=== PATIENT | female | born 1940 | race Caucasian/White ===

== ENCOUNTER 2020-08-31 17:15 | Inpatient (IN) ==
--- NOTE | 2020-08-31 18:53 | Emergency Department Note ---
Weakness HPI General Chief complaint: Weakness Stated complaint: weakness Time Seen by Provider: 08/31/20 18:04 Source: patient Mode of arrival: ambulatory Limitations: no limitations History of Present Illness HPI Narrative: Narrative: This pleasant 80-year-old comes in to the emergency room with a 10-day history o f feeling weak and poor appetite such that she has not eaten and drank very normally. She has had nausea but no vomiting or diarrhea or constipation. Her last bowel movement was 2 to 3 days ago but was normal. She has some urinary frequency. She reports a past history of having wrist fractures, surgery for them and then ended up going to rehab for 3 weeks and then came here to have family members I believe a daughter help with her. She was improving significantly until these last 10 days where she was getting worse as far as weaker. She denies fevers chills or sweats or other signs of infectious process or problems. Related Data Home Medications Medication Instructions Recorded Confirmed alendronate 35 mg PO WEEKLY 08/31/20 08/31/20 amlodipine 10 mg PO DAILY 08/31/20 08/31/20 apixaban [Eliquis] 2.5 mg PO BID 08/31/20 08/31/20 calcitriol See Rx Instructions .ROUTE .COMPLEX 08/31/20 08/31/20 carvedilol See Rx Instructions .ROUTE .COMPLEX 08/31/20 08/31/20 cholecalciferol (vitamin D3) See Rx Instructions .ROUTE .COMPLEX 08/31/20 08/31/20 glyburide 5 mg PO BID 08/31/20 08/31/20 levothyroxine 25 mcg PO QDAY 08/31/20 08/31/20 lisinopril 10 mg PO BID 08/31/20 08/31/20 magnesium hydroxide 30 ml PO PRN PRN 08/31/20 08/31/20 melatonin 10 mg PO HS PRN 08/31/20 08/31/20 sodium bicarbonate See Rx Instructions .ROUTE .COMPLEX 08/31/20 08/31/20 calcitriol 0.5 mcg PO 3XW 09/01/20 09/01/20 Allergies Allergy/AdvReac Type Severity Reaction Status Date / Time Penicillins Allergy Mild Hives Verified 08/31/20 17:20 Sulfa (Sulfonamide Allergy Mild Hives Verified 08/31/20 17:20 Antibiotics) Review of Systems ROS ROS Narrative: Narrative: No blurry vision or double vision No sore throat. Some recent but chronic runny nose No chest pain or palpitations No cough or shortness of breath No abdominal pain hematochezia or melena No dysuria but does have frequency and urgency in small amounts. [facility] Narrative Patient History Narrative: Narrative: Denies history of thyroid disease, parathyroid disease, kidney disease but had seen a lpn private duty in the past with an appointment next week. Has seen Dr. Bianchi at [facility]. Medical/Surgical/Family History All Active Problems (Updated 09/01/20 @ 03:34 by Dony Chou DO) Hypercalcemia (Acute) Acute on chronic renal failure (Acute) Weakness generalized (Acute) Decreased appetite (Acute) Chronic renal failure (Acute) History of cardiac pacemaker (Acute) Medical History (Updated 09/01/20 @ 03:49 by Dony Chou DO) Chronic renal failure (Acute) Surgical History (Updated 09/01/20 @ 03:34 by Dony Chou DO) History of cardiac pacemaker (Acute) History of pancreatic surgery (Acute) Removal of cyst Family History (Updated 09/01/20 @ 03:35 by Dony Chou DO) Acute myocardial infarction Father Social History Smoking Status: Never smoker Alcohol Intake Frequency: does not drink Substance Use: does not use Exam Narrative Narrative: Narrative: General Limitations: no limitations General appearance: Present alert, in no apparent distress, malaise (moderate) and nontoxic Head Head: Present atraumatic and normocephalic Eye Eye: Present normal appearance, PERRL and EOMI ENT ENT: Present normal oropharynx and mucous membranes dry Neck Neck: Present trachea midline; Absent lymphadenopathy and thyromegaly Chest Chest: Present symmetric chest wall rise Respiratory Respiratory: Present normal lung sounds bilaterally; Absent respiratory distress, rales/crackles, wheezes, stridor, accessory muscle use and prolonged expiratory phase Cardiovascular Cardiovascular: Present regular rate and normal rhythm; Absent systolic murmur and diastolic murmur Adbominal Abdominal: Present soft; Absent distention, tenderness, guarding, rebound, rigidity, organomegaly and mass Extremities Extremities: Absent pedal edema, pretibial edema, calf tenderness and cyanosis Back Back: Absent CVA tenderness (R), CVA tenderness (L) and spinous process tenderness Neurological Neurological: Present alert and oriented X3 Psychiatric Psychiatric: Present normal affect, polite and pleasant; Absent depressed, ag itated, anxious and poor eye contact Skin Skin: Present warm (WNL) and dry; Absent cyanosis and pallor Course Vital Signs Vital signs: Vital Signs Temperature 98.3 F 08/31/20 17:16 Pulse Rate 73 08/31/20 17:16 Respiratory Rate 18 08/31/20 17:16 Blood Pressure 134/78 08/31/20 17:16 Pulse Oximetry (%) 98 08/31/20 17:16 Temperature 98.3 F 08/31/20 17:16 Pulse Rate 70 09/01/20 02:39 Respiratory Rate 21 09/01/20 02:39 Blood Pressure 161/88 09/01/20 00:31 Pulse Oximetry (%) 96 09/01/20 02:39 MDM MDM Narrative Medical decision making narrative: Narrative: 7:31 PM - interviewed and examined. We will do metabolic and infectious work-up because of persisting symptoms and issues and concerns. EKG demonstrates paced rhythm with wide QRS but rather evenly spaced. 6:53 PM - lactic acid 2.5. White count 6.0. Hemoglobin and hematocrit 12.0/34.8. Sodium 137 potassium 2.8 and chloride 94. BUN and creatinine 33 and 2.3 No old ones for comparison. Glucose 208 Calcium very elevated at 15.2. Troponin normal at 0.02. Proteins are unremarkable. 9:45 PM - call out to hospitalist to discuss her care and admission with such a high calcium which is potentially toxic and life-threatening with cardiac dysrhythmias, etc. Knowledge of her previous creatinine is not in our system but may be at [place]. With very elevated calcium, normal saline started. Lasix 20 IV ordered. Oral potassium ordered. 10:08 PM - I held the Lasix pending getting some additional potassium. Potassium rider ordered. I spoke with the hospitalist,Dr. Lainez, about this patient. * He suggests going ahead additional IV fluids. * A PTH is already been collected. * Accurate I's and O's needed. * He also recommends getting calcitonin as well as * doing the 25 hydroxyvitamin D and 1-25 hydroxy vitamin D levels. * He agrees with holding the furosemide due to the low potassium. * Pamidronate also previously ordered and was found. * He suggests going ahead with 200 cc/h, accurate I's and O's, morning labs. * He would rather not for a Benson catheter. In discussing CODE STATUS with patient she is generally wishing DNR, DNI. Lab Data Result diagrams: 08/31/20 18:05 08/31/20 18:05 Labs: Lab Results 08/31/20 08/31/20 08/31/20 Range/Units 18:05 18:05 19:39 WBC 6.0 (4.5-11.0) K/mcL RBC 3.96 L (4.00-5.20) M/mcL Hgb 12.0 (12.0-15.0) g/dL Hct 34.8 L (36.0-48.0) % MCV 87.9 (80.0-100.0) fL MCH 30.3 (26.0-34.0) pg MCHC 34.5 (31.0-36.0) g/dL RDW 11.7 (11.5-14.5) % Plt Count 250 (140-440) K/mcL MPV 10.6 H (7.4-10.4) fL Seg Neutrophils % 78 (38-78) % Lymphocytes % 14 L (15-49) % Monocytes % (Manual) 8 (1-12) % Platelet Estimate Normal (Normal) RBC Morphology Normal (Normal) Sodium 137 (133-145) mmol/L Potassium 2.8 L* (3.3-5.1) mmol/L Chloride 94 L (96-108) mmol/L Carbon Dioxide 29 (22-30) mmol/L Anion Gap 14.0 (8.0-16.0) BUN 33 H (8-23) mg/dL Creatinine 2.3 H (0.6-1.1) mg/dL GFR Calculation 19 Glucose 208 H (70-105) mg/dL Calcium 15.2 H* (8.6-10.4) mg/dL Total Bilirubin 1.0 (0.1-1.0) mg/dL AST 17 (<32) U/L ALT 11 (<40) U/L Alkaline Phosphatase 73 (39-117) U/L Troponin T 0.02 (<0.03) ng/mL Total Protein 7.0 (5.9-8.4) gm/dL Albumin 4.2 (3.2-5.2) gm/dL Globulin 2.8 (2.2-3.7) gm/dL Albumin/Globulin Ratio 1.5 (1.0-2.3) Discharge Plan Patient/Caregiver Discharge Instructions Pt seen by REVENUE COORDINATOR/PA only: No Clinical Impression: Hypercalcemia, Weakness generalized, Decreased appetite Acute on chronic renal failure Qualifiers: Acute renal failure type: unspecified Chronic kidney disease stage: unspecified stage Qualified Code(s): N17.9 - Acute kidney failure, unspecified Patient Disposition: Xfer As Inpt ([facility] Discharge Date/Time: 09/01/20 02:43
[2020-08-31 19:00] LABS: Hematocrit 34.8 % (36.0-48.0); Mean Cell Volume 87.9 fL (80.0-100.0); Mean Corpuscular HGB Conc 34.5 g/dL (31.0-36.0); Mean Platelet Volume 10.6 fL (7.4-10.4); Platelet Count 250 K/mcL (140-440); RBC 3.96 M/mcL (4.00-5.20); Red Cell Distribution Width 11.7 % (11.5-14.5)
[2020-08-31 19:47] LABS: ALT/SGPT 11 U/L (<40); AST/SGOT 17 U/L (<32); Albumin 4.2 gm/dL (3.2-5.2); Albumin/Globulin Ratio 1.5 (1.0-2.3); Alkaline Phosphatase 73 U/L (39-117); Blood Urea Nitrogen 33 mg/dL (8-23); Calcium 15.2 mg/dL (8.6-10.4); Carbon Dioxide 29 mmol/L (22-30); Chloride 94 mmol/L (96-108); Globulin 2.8 gm/dL (2.2-3.7); Glomerular Filtration Rate 19; Glucose 208 mg/dL (70-105)
[2020-08-31 19:58] LABS: Lymphocytes % 14 % (15-49); Monocytes % (Manual) 8 % (1-12); Platelet Estimate NORMAL (Normal); RBC Morphology NORMAL (Normal); Segmented Neutrophils % 78 % (38-78)
[2020-08-31] MEDS ORDERED: 0.9 % SODIUM CHLORIDE 1,000 ML IV ONE (21:39)
[2020-08-31] MEDS ORDERED: POTASSIUM CHLORIDE 20 MEQ TABLET PO ONE (21:40)
[2020-08-31] MEDS ORDERED: FUROSEMIDE 20 MG/2 ML VIAL IV ONE (21:40)
[2020-08-31] MEDS ORDERED: POTASSIUM CHLORIDE 80 MEQ in DEXTROSE 5% IN WATER 1,000 ML IV ONE (22:06)
[2020-08-31] MEDS ORDERED: POTASSIUM CHLORIDE 20 MEQ/10 ML VIAL IV ONE (22:28)
[2020-08-31] MEDS ORDERED: PAMIDRONATE 60 MG in 0.9 % SODIUM CHLORIDE 500 ML IV ONE (23:14)
[2020-09-01] MEDS ORDERED: 0.9 % SODIUM CHLORIDE 1,000 ML IV ONE (00:45)
[2020-09-01] MEDS ORDERED: ONDANSETRON 4 MG/2 ML VIAL IV PRN (02:11)
[2020-09-01] MEDS: 0.9 % SODIUM CHLORIDE 1,000 ML IV SCH ×6 (04:48→19:40)
[2020-09-01 05:18] LABS: Appearance,Urine CLEAR (Clear); Bilirubin,Urine Negative (Negative); Color,Urine STRAW; Culture Indicated,Urine No; Glucose,Urine (UA) 150 mg/dL (Negative); Ketones,Urine Negative (Negative); Leukocyte Esterase,Urine Negative /ug (Negative); Mucus,Urine FEW /hpf; Nitrate,Urine Negative (Negative); Protein,Urine Negative (Negative); Specific Gravity,Urine 1.008 (1.000-1.035); Urine Blood Negative (Negative); Urine RBC 2 /hpf (0-3); Urine Squamous Epithelial Cell < 1 /hpf (0-4); Urine WBC 3 /hpf (0-4); Urobilinogen,Urine Negative
[2020-09-01 06:26] LABS: Basophils # (Auto) 0.02 K/mcL (0.00-0.20); Basophils % (Auto) 0.3 % (0.0-2.0); Eosinophils # (Auto) 0.03 K/mcL (0.00-0.70); Eosinophils % (Auto) 0.4 % (0.0-7.0); Hematocrit 30.7 % (36.0-48.0); Hemoglobin 10.5 g/dL (12.0-15.0); Lymphocytes # (Auto) 1.36 K/mcL (1.50-4.80); Lymphocytes % (Auto) 18.1 % (15.0-49.0); Mean Corpuscular HGB Conc 34.2 g/dL (31.0-36.0); Mean Platelet Volume 10.5 fL (7.4-10.4); Monocytes # (Auto) 0.71 K/mcL (0.10-0.90); Monocytes % (Auto) 9.4 % (1.0-12.0); Neutrophils % (Auto) 71.8 % (38.0-78.0); Platelet Count 213 K/mcL (140-440); RBC 3.45 M/mcL (4.00-5.20); Red Cell Distribution Width 11.7 % (11.5-14.5); WBC 7.5 K/mcL (4.5-11.0)
[2020-09-01 06:59] LABS: ALT/SGPT 9 U/L (<40); AST/SGOT 15 U/L (<32); Albumin 3.8 gm/dL (3.2-5.2); Albumin/Globulin Ratio 1.8 (1.0-2.3); Alkaline Phosphatase 60 U/L (39-117); Bilirubin,Direct 0.2 mg/dL (<0.3); Bilirubin,Total 0.8 mg/dL (0.1-1.0); Blood Urea Nitrogen 26 mg/dL (8-23); Calcium 12.9 mg/dL (8.6-10.4); Carbon Dioxide 23 mmol/L (22-30); Chloride 103 mmol/L (96-108); Globulin 2.1 gm/dL (2.2-3.7); Glomerular Filtration Rate 24; Glucose 188 mg/dL (70-105); Lactate Dehydrogenase 155 U/L (135-225); Phosphorous 1.5 mg/dL (2.5-4.5); Triglycerides 304 mg/dL (<150)
[2020-09-01] MEDS: 0.9 % SODIUM CHLORIDE 10 ML SYRINGE IV SCH ×3 (07:34→20:07)
[2020-09-01] MEDS ORDERED: DEXTROSE 31 GM ORAL.SUSP PO PRN (15:44)
[2020-09-01] MEDS ORDERED: DEXTROSE 50% 50 ML VIAL IV PRN (15:44)
[2020-09-01] MEDS ORDERED: CARVEDILOL 6.25 MG TABLET PO SCH (15:45)
[2020-09-01 15:50] LABS: Parathyroid Hormone Intact-SO 40.8 pg/mL (15.0-65.0)
--- NOTE | 2020-09-01 15:53 | Internal Med History&Physical ---
HPI History of Present Illness Patient information: Note initiated : 09/01/20 at 3:48 pm Service Date, if different from initiated Date: [] Patient: Gloria Sanchez 80 y/o F admitted on 09/01/20 for weakness. Chief Complaint: [hypercalcemia] History of present illness: Ms. Sanchez is a 80 year old female with a history of hypertension, DM II, afib (on low dose eliquis), CKD unknown stage (follows with nephrology at [facility] in [place]), s/p pacemaker placement years ago, who presented to the ED for lethargy, generalized weakness and found to have hypercalcemia with a calcium of 15.2 and an acute kidney injury. The the patient was started on IV fluid, given a dose of Pamidronate, admitted for further management. Overnight her calcium level improved to 12.9 and renal function improved as well. Since calcium has improved rapidly calcitonin was deferred. 25-OH vitamin D level elevated at 82.9. Constitutional Constitutional: Present anorexia, chills, fatigue, frequent falls, lethargy, malaise and weakness; Absent fever(s) and night sweats Cardiovascular Cardiovascular: Absent chest pain Respiratory Respiratory: Absent cough and dyspnea Gastrointestinal Gastrointestinal: Absent abdominal pain, constipation, nausea and vomiting Genitourinary Genitourinary: Present urinary frequency Musculoskeletal Musculoskeletal: Absent arthralgias, joint swelling and muscle cramps Integumentary Integumentary: Absent new lesions Neurological Neurological: Absent focal weakness, headache(s), loss of vision and sensory deficit Psychiatric Psychiatric: Present memory loss; Absent anxiety Hematologic/Lymphatic Hematologic/Lymphatic: Absent lymphadenopathy PFSH PFSH All Active Problems (Updated 09/01/20 @ 03:34 by Dony Chou DO) Hypercalcemia (Acute) Acute on chronic renal failure (Acute) Weakness generalized (Acute) Decreased appetite (Acute) Chronic renal failure (Acute) History of cardiac pacemaker (Acute) Medical History (Updated 09/01/20 @ 03:49 by Dony Chou DO) Chronic renal failure (Acute) Surgical History (Updated 09/01/20 @ 03:34 by Dony Chou DO) History of cardiac pacemaker (Acute) History of pancreatic surgery (Acute) Removal of cyst Family History (Updated 09/01/20 @ 03:35 by Dony Burrup, DO) Father Acute myocardial infarction Social History smoking status: Never smoker alcohol intake frequency: does not drink substance use type: does not use MEDS/ALLERGIES Home Medications and Allergies Home Medications Medication Instructions Recorded Confirmed Type alendronate 35 mg PO WEEKLY 08/31/20 08/31/20 History amlodipine 10 mg PO DAILY 08/31/20 08/31/20 History apixaban [Eliquis] 2.5 mg PO BID 08/31/20 08/31/20 History calcitriol See Rx Instructions .ROUTE .COMPLEX 08/31/20 08/31/20 History carvedilol See Rx Instructions .ROUTE .COMPLEX 08/31/20 08/31/20 History cholecalciferol (vitamin D3) See Rx Instructions .ROUTE .COMPLEX 08/31/20 08/31/20 History glyburide 5 mg PO BID 08/31/20 08/31/20 History levothyroxine 25 mcg PO QDAY 08/31/20 08/31/20 History lisinopril 10 mg PO BID 08/31/20 08/31/20 History magnesium hydroxide 30 ml PO PRN PRN 08/31/20 08/31/20 History melatonin 10 mg PO HS PRN 08/31/20 08/31/20 History sodium bicarbonate See Rx Instructions .ROUTE .COMPLEX 08/31/20 08/31/20 History calcitriol 0.5 mcg PO 3XW 09/01/20 09/01/20 History Allergies Allergy/AdvReac Type Severity Reaction Status Date / Time Penicillins Allergy Mild Hives Verified 08/31/20 17:20 Sulfa (Sulfonamide Allergy Mild Hives Verified 08/31/20 17:20 Antibiotics) EXAM Constitutional Vitals: Temp Pulse Resp BP Pulse Ox 97.7 F 69 13 140/77 96 09/01/20 14:00 09/01/20 10:01 09/01/20 14:00 09/01/20 14:00 09/01/20 14:00 Head Head exam: Present atraumatic and normal inspection Eye Eye exam: Present normal appearance; Absent scleral icterus Neck Neck exam: Present full ROM Respiratory Respiratory exam: Present normal respiratory exam Cardiovascular Cardiovascular exam: Present normal rate and rhythm Additional comments: has pacemaker GI/Abdominal GI/Abdominal exam: Present soft; Absent tenderness Extremities Exam Extremities exam: Present full ROM and tenderness; Absent joint swelling Additional comments: Bruise to right ramesh from recent fall. Neurological Exam Neurological exam: Present alert and CN II-XII intact Psychiatric Psychiatric exam: Present normal affect and normal mood Skin Skin exam: Present warm DATA Data Completed and Pending Labs: Labs from last 24 hours 09/01/20 09/01/20 09/01/20 18:05 18:05 18:00 WBC RBC Hgb Hct MCV MCH MCHC RDW Plt Count MPV Neut % (Auto) Lymph % (Auto) [place] % (Auto) Eos % (Auto) Baso % (Auto) Lymph # (Auto) [place] # (Auto) Eos # (Auto) Baso # (Auto) Seg Neutrophils % Lymphocytes % Monocytes % (Manual) Absolute Neutrophils Platelet Estimate RBC Morphology Sodium Potassium Chloride Carbon Dioxide Anion Gap BUN Creatinine GFR Calculation Glucose Uric Acid Calcium Phosphorus Magnesium Total Bilirubin Direct Bilirubin GGT AST ALT Alkaline Phosphatase Lactate Dehydrogenase Troponin T Total Protein Albumin Globulin Albumin/Globulin Ratio Triglycerides 25-OH Vitamin D Total 82.89 Vit D 1,25-Dihydroxy Pending 1,25 Dihydroxy Vit D2 Pending 1,25 Dihydroxy Vit D3 Pending PTH Intact Pending Urine Color Urine Appearance Urine pH Ur Specific [place] Urine Protein Urine Glucose (UA) Urine Ketones Urine Occult Blood Urine Nitrate Urine Bilirubin Urine Urobilinogen Ur Leukocyte Esterase Urine RBC Urine WBC Ur Squamous Epith Cells Urine Bacteria Urine Mucus Ur Culture Indicated? 09/01/20 09/01/20 09/01/20 05:00 05:00 04:29 WBC 7.5 RBC 3.45 L Hgb 10.5 L Hct 30.7 L MCV 89.0 MCH 30.4 MCHC 34.2 RDW 11.7 Plt Count 213 MPV 10.5 H Neut % (Auto) 71.8 Lymph % (Auto) 18.1 [place] % (Auto) 9.4 Eos % (Auto) 0.4 Baso % (Auto) 0.3 Lymph # (Auto) 1.36 L [place] # (Auto) 0.71 Eos # (Auto) 0.03 Baso # (Auto) 0.02 Seg Neutrophils % Lymphocytes % Monocytes % (Manual) Absolute Neutrophils 5.40 Platelet Estimate RBC Morphology Sodium 139 Potassium 3.7 Chloride 103 Carbon Dioxide 23 Anion Gap 13.0 BUN 26 H Creatinine 1.9 H GFR Calculation 24 Glucose 188 H Uric Acid 10.0 H Calcium 12.9 H Phosphorus 1.5 L Magnesium 1.9 Total Bilirubin 0.8 Direct Bilirubin 0.2 GGT 29 AST 15 ALT 9 Alkaline Phosphatase 60 Lactate Dehydrogenase 155 Troponin T Total Protein 5.9 Albumin 3.8 Globulin 2.1 L Albumin/Globulin Ratio 1.8 Triglycerides 304 H 25-OH Vitamin D Total Vit D 1,25-Dihydroxy 1,25 Dihydroxy Vit D2 1,25 Dihydroxy Vit D3 PTH Intact Urine Color Straw Urine Appearance Clear Urine pH 8.0 Ur Specific [place] 1.008 Urine Protein Negative Urine Glucose (UA) 150 A Urine Ketones Negative Urine Occult Blood Negative Urine Nitrate Negative Urine Bilirubin Negative Urine Urobilinogen Negative Ur Leukocyte Esterase Negative Urine RBC 2 Urine WBC 3 Ur Squamous Epith Cells < 1 Urine Bacteria None Urine Mucus Few A Ur Culture Indicated? No 08/31/20 08/31/20 08/31/20 19:39 18:05 18:05 WBC 6.0 RBC 3.96 L Hgb 12.0 Hct 34.8 L MCV 87.9 MCH 30.3 MCHC 34.5 RDW 11.7 Plt Count 250 MPV 10.6 H Neut % (Auto) Lymph % (Auto) [place] % (Auto) Eos % (Auto) Baso % (Auto) Lymph # (Auto) [place] # (Auto) Eos # (Auto) Baso # (Auto) Seg Neutrophils % 78 Lymphocytes % 14 L Monocytes % (Manual) 8 Absolute Neutrophils Platelet Estimate Normal RBC Morphology Normal Sodium 137 Potassium 2.8 L* Chloride 94 L Carbon Dioxide 29 Anion Gap 14.0 BUN 33 H Creatinine 2.3 H GFR Calculation 19 Glucose 208 H Uric Acid Calcium 15.2 H* Phosphorus Magnesium Total Bilirubin 1.0 Direct Bilirubin GGT AST 17 ALT 11 Alkaline Phosphatase 73 Lactate Dehydrogenase Troponin T 0.02 Total Protein 7.0 Albumin 4.2 Globulin 2.8 Albumin/Globulin Ratio 1.5 Triglycerides 25-OH Vitamin D Total Vit D 1,25-Dihydroxy 1,25 Dihydroxy Vit D2 1,25 Dihydroxy Vit D3 PTH Intact Urine Color Urine Appearance Urine pH Ur Specific [place] Urine Protein Urine Glucose (UA) Urine Ketones Urine Occult Blood Urine Nitrate Urine Bilirubin Urine Urobilinogen Ur Leukocyte Esterase Urine RBC Urine WBC Ur Squamous Epith Cells Urine Bacteria Urine Mucus Ur Culture Indicated? A/P Narrative A/P Narrative: ASSESSMENT: 80 year old female with a history of hypertension, DM II, afib (on low dose eliquis), CKD unknown stage (follows with nephrology at [facility] in [place]), s/p pacemaker placement years ago, multiple recent hospitalization and SNF rehab stays for recent falls presented to the ED for several weeks of lethargy, anorexia, generalized weakness and found to have hypercalcemia and an acute kidney injury. #Hypercalcemia-uncertain etiology, improving with IV and s/p pamidronate x1 #Acute on chronic kidney injury-likely d/t hypercalcemia, improving #Lethargy and anorexia secondary to hypercalcemia-improving #Elevated 25-OH vitamin D level-possible explanation for hypercalcemia #Atrial fibrillation s/p pacemaker-probably pacemaker dependent #Hypertension #Osteoporosis #Generalized weakness PLAN -IV fluid, monitor renal function, calcium level, and urine output. -Avoid nephrotoxic meds, holding lisinopril for GIBSON -Parathyroid hormone level -Pending 1,25-OH vitamin D level -TSH level -If PTH level low then PTH-rp, SPEP, UPEP, free light chain assay -Holding home calcitriol and cholecalciferol for hypercalcemia and elevated vit D level -Resume home norvasc and coreg -Resume home eliquis -Resume home levothyroxine -Lantus and SSI, holding glyburide -Telemetry for now -PT&OT consult -DVT prophylaxis: on eliquis Time Spent With Patient Time: Total time spent is greater than 50% in coordination of care (as documented) at patient's floor/unit and/or counseling patient: QUALITY VTE Deep Vein Thrombosis/Pulmonary Embolism Present on Admission: No
[2020-09-01] MEDS ORDERED: MELATONIN 3 MG TABLET PO PRN (15:55)
[2020-09-01] MEDS: INSULIN LISPRO 1 UNIT/0.01 ML UNIT SQ SCH ×2 (17:07→20:06)
[2020-09-01] MEDS: CARVEDILOL 6.25 MG TABLET PO SCH (17:07)
[2020-09-01] MEDS: APIXABAN 5 MG TABLET PO SCH (20:06)
[2020-09-02] MEDS: 0.9 % SODIUM CHLORIDE 10 ML SYRINGE IV SCH ×3 (05:13→20:03)
[2020-09-02] MEDS: 0.9 % SODIUM CHLORIDE 1,000 ML IV SCH ×4 (05:24→19:58)
[2020-09-02 06:10] LABS: Basophils # (Auto) 0.02 K/mcL (0.00-0.20); Basophils % (Auto) 0.3 % (0.0-2.0); Eosinophils # (Auto) 0.12 K/mcL (0.00-0.70); Eosinophils % (Auto) 1.6 % (0.0-7.0); Hematocrit 30.7 % (36.0-48.0); Hemoglobin 10.4 g/dL (12.0-15.0); Lymphocytes # (Auto) 1.28 K/mcL (1.50-4.80); Lymphocytes % (Auto) 17.3 % (15.0-49.0); Mean Cell Volume 89.8 fL (80.0-100.0); Mean Corpuscular HGB Conc 33.9 g/dL (31.0-36.0); Mean Platelet Volume 10.5 fL (7.4-10.4); Monocytes # (Auto) 0.56 K/mcL (0.10-0.90); Monocytes % (Auto) 7.6 % (1.0-12.0); Neutrophils % (Auto) 73.2 % (38.0-78.0); Platelet Count 207 K/mcL (140-440); RBC 3.42 M/mcL (4.00-5.20); WBC 7.4 K/mcL (4.5-11.0)
[2020-09-02 07:17] LABS: ALT/SGPT 10 U/L (<40); AST/SGOT 15 U/L (<32); Albumin 3.6 gm/dL (3.2-5.2); Albumin/Globulin Ratio 1.6 (1.0-2.3); Alkaline Phosphatase 62 U/L (39-117); Bilirubin,Direct < 0.2 mg/dL (<0.3); Bilirubin,Total 0.6 mg/dL (0.1-1.0); Blood Urea Nitrogen 22 mg/dL (8-23); Calcium 10.9 mg/dL (8.6-10.4); Carbon Dioxide 23 mmol/L (22-30); Chloride 108 mmol/L (96-108); Globulin 2.3 gm/dL (2.2-3.7); Glomerular Filtration Rate 28; Glucose 116 mg/dL (70-105); Lactate Dehydrogenase 149 U/L (135-225); Phosphorous 1.5 mg/dL (2.5-4.5); Triglycerides 387 mg/dL (<150); Uric Acid 9.3 mg/dL (2.5-8.0)
[2020-09-02] MEDS ORDERED: LEVOTHYROXINE 25 MCG TABLET PO SCH (07:30)
[2020-09-02] MEDS ORDERED: POTASSIUM CHLORIDE 20 MEQ TABLET PO ONE (07:58)
[2020-09-02] MEDS ORDERED: MAGNESIUM SULFATE 2 GM/50 ML BAG IV ONE (07:58)
[2020-09-02] MEDS: INSULIN LISPRO 1 UNIT/0.01 ML UNIT SQ SCH ×4 (08:08→20:03)
[2020-09-02] MEDS: APIXABAN 5 MG TABLET PO SCH ×2 (08:38→21:12)
[2020-09-02] MEDS: CARVEDILOL 6.25 MG TABLET PO SCH ×2 (08:39→18:17)
[2020-09-02] MEDS ORDERED: amLODIPine 10 MG TABLET PO SCH (09:00)
[2020-09-02] MEDS ORDERED: INSULIN GLARGINE, HUMAN 1 UNIT/0.01 ML SQ SCH (09:00)
[2020-09-02] MEDS ORDERED: FLU VACC QS2020-21(6MOS UP)/PF 60 MCG/0.5 ML SYRINGE IM ONE (10:00)
[2020-09-02] MEDS ORDERED: MELATONIN 3 MG TABLET PO PRN (10:59)
[2020-09-02] MEDS ORDERED: ONDANSETRON 4 MG/2 ML VIAL IV PRN (10:59)
[2020-09-02] MEDS ORDERED: DEXTROSE 31 GM ORAL.SUSP PO PRN (10:59)
[2020-09-02] MEDS ORDERED: DEXTROSE 50% 50 ML VIAL IV PRN (10:59)
--- NOTE | 2020-09-02 11:01 | Internal Med Progress Note ---
SUBJECTIVE Subjective Patient information: Note initiated : 09/02/20 at 10:57 am Service Date, if different from initiated Date: [] Patient: Gloria Sanchez 80 y/o F admitted on 09/01/20 for weakness. Chief Complaint: [fatigue and anorexia] Pertinent ROS: Ms. Sanchez is a 80 year old female with a history of hypertension, DM II, afib (on low dose eliquis), CKD unknown stage (follows with nephrology at [facility] in [place]), s/p pacemaker placement years ago, who presented to the ED for lethargy, generalized weakness and found to have hyp ercalcemia with a calcium of 15.2 and an acute kidney injury. The the patient was started on IV fluid, given a dose of Pamidronate, admitted for further management. Overnight her calcium level improved to 12.9 and renal function improved as well. Since calcium has improved rapidly calcitonin was deferred. 25-OH vitamin D level elevated at 82.9. 09/02 Improving renal function and calcium level, decreased IV fluid rate to 75 mL/hr. PTH 40.8 (higher than expected for calcium level). TSH 1.36. Transfer to med/surg. PT/OT evaluations. Constitutional Vitals: Vital Signs Temp Pulse Resp BP Pulse Ox 98.5 F 70 16 121/76 95 09/02/20 08:01 09/01/20 14:00 09/02/20 10:01 09/02/20 10:01 09/02/20 10:07 Period Temp Pulse Resp BP Sys/Jerome Pulse Ox Last 24 Hr 97.7 F-98.5 F 70 13-18 115-155/61-91 91-97 Intake and Output 09/01/20 09/02/20 09/02/20 21:59 05:59 13:59 Intake Total 1700 1100 240 Output Total 520 1750 525 Balance 1180 -650 -285 Weight 73.618 kg Intake & Output: Intake & Output 09/01/20 09/02/20 09/02/20 21:59 05:59 13:59 Intake Total 1700 1100 240 Output Total 520 1750 525 Balance 1180 -650 -285 Weight 73.618 kg Intake: IV 1300 1000 Sodium Chloride 0.9% 1,000 ml @ 1300 1000 75 mls/hr IV .[id number] [facility] Rx#: [id number] Oral 400 100 240 Output: Void Amount 520 1750 525 Other: Meal Dinner Breakfast Percent of Meal Consumed 100% 75% Feeding Ability Independent Urine Appearance Clear Clear Clear Urine Color Dark Yellow Pale Bright Yellow Urine Odor Normal Normal Normal Stool Size Large Large Stool Color Brown Brown Stool Consistency Formed Formed # Bowel Movements 1 Additional findings Additional findings: Head: Atraumatic, normal inspection. Eyes: normal appearance, no scleral icterus. Neck: full ROM Respiratory: no respiratory distress. Cardiovascular: normal rate and rythm, S1, S2. GI/Abdominal: soft, nontender, no guarding. Extremities: full range of motion, nontender. Neurological: CN II-XII intact, intact motor, intact sensation. Psychiatric: normal mood. Skin: warm, normal color OBJ DATA Labs CBC & Chem 7: 09/02/20 04:57 09/02/20 04:57 Labs: Abnormal Lab Results 09/02/20 09/02/20 09/01/20 04:57 04:57 05:00 RBC 3.42 L Hgb 10.4 L Hct 30.7 L MPV 10.5 H Lymph # (Auto) 1.28 L Lymphocytes % Potassium Chloride BUN 26 H Creatinine 1.7 H 1.9 H Glucose 116 H 188 H Uric Acid 9.3 H 10.0 H Calcium 10.9 H 12.9 H Phosphorus 1.5 L 1.5 L Magnesium 1.5 L Globulin 2.1 L Triglycerides 387 H 304 H Urine Glucose (UA) Urine Mucus 09/01/20 09/01/20 08/31/20 05:00 04:29 18:05 RBC 3.45 L Hgb 10.5 L Hct 30.7 L MPV 10.5 H Lymph # (Auto) 1.36 L Lymphocytes % Potassium 2.8 L* Chloride 94 L BUN 33 H Creatinine 2.3 H Glucose 208 H Uric Acid Calcium 15.2 H* Phosphorus Magnesium Globulin Triglycerides Urine Glucose (UA) 150 A Urine Mucus Few A 08/31/20 18:05 RBC 3.96 L Hgb Hct 34.8 L MPV 10.6 H Lymph # (Auto) Lymphocytes % 14 L Potassium Chloride BUN Creatinine Glucose Uric Acid Calcium Phosphorus Magnesium Globulin Triglycerides Urine Glucose (UA) Urine Mucus Meds: Medications Amlodipine Besylate (Norvasc) 10 mg PO DAILY [facility] Last Admin: 09/02/20 08:39 Dose: 10 mg Documented by: Apixaban (Eliquis) 2.5 mg PO BID [facility] Last Admin: 09/02/20 08:38 Dose: 2.5 mg Documented by: [facility] ([facility]) [facility] Last Admin: 09/02/20 08:39 Dose: 6.25 mg Documented by: Dextrose (Dextrose 50%) 0 ml IV UD PRN PRN Reason: Hypoglycemia Diagnostic Test (Pha) (Accu-Chek) 1 each FS [facility] Last Admin: 09/02/20 08:07 Dose: 1 each Documented by: Glucose (Insta-Glucose) 15 gm PO PRN PRN PRN Reason: Hypoglycemia Sodium Chloride (Sodium Chloride 0.9%) 1,000 mls @ 75 mls/hr IV .[id number] [facility] Last Admin: 09/02/20 09:01 Dose: Not Given Documented by: Insulin Glargine (Lantus) 5 unit SQ DAILY [facility] Last Admin: 09/02/20 08:38 Dose: 5 unit Documented by: Insulin Human Lispro (Humalog) 0 unit SQ [facility]; Protocol Last Admin: 09/02/20 08:08 Dose: Not Given Documented by: Levothyroxine Sodium (Synthroid) 25 mcg PO QAMAC [facility] Last Admin: 09/02/20 08:39 Dose: 25 mcg Documented by: Melatonin (Melatonin 3mg Tablet) 9 mg PO HSP PRN PRN Reason: Insomnia Ondansetron HCl (Zofran) 4 mg IV Q4HP PRN; Protocol PRN Reason: Nausea And Vomiting Sodium Chloride (Saline Flush) 10 ml IV Q8 [facility] Last Admin: 09/02/20 05:13 Dose: Not Given Documented by: A/P Narrative A/P Narrative: ASSESSMENT: 80 year old female with a history of hypertension, DM II, afib (on low dose eliquis), CKD stage III (follows with nephrology at [facility] in [place]), she carries a diagnosis of secondary hyperparathyroidism of renal origin (per nephrology), s/p pacemaker placement years ago, multiple recent hospitalization and SNF rehab stays for recent falls presented to the ED for several weeks of lethargy, anorexia, generalized weakness and found to have hypercalcemia and an acute on chronic kidney injury. The patient was started on IV fluid, received on dose of IV Pamidronate and admitted for ongoing manag ement. Her renal function and calcium level have improved ongoing workup revealed a PTH in the mid-range, vitamin D level 82.9. #Hypercalcemia-uncertain etiology, improving with IV and s/p pamidronate x1 -Differential includes: primary hyperparathyroidism, malignancy, secondary hyperparathyroidism or renal origin? [facility], vs other -PTH 40.8 (mid-upper range)-higher than expected for hypercalcemia -25-OH vit D 82.9 (replete) #Nonoliguric acute on chronic kidney stage IIIa injury-improving -suspect d/t hypercalcemia (was also taking lisinopril) -bland urinalysis -no evidence of obstructive uropathy clinically #Hypophosphatemia-possibly secondary to hyperparathyroidism #Hyperuricemia #Chronic anemia-stable #Lethargy and anorexia-resolved #Atrial fibrillation s/p pacemaker-probably pacemaker dependent #Hypertension #Hypothyroidism-TSH 1.36 #Osteoporosis #Generalized weakness PLAN -Decrease IV NS to 75 /l/min, monitor renal function, calcium level, and urine output. Likely discontinue IV soon. -Avoid nephrotoxic meds, holding lisinopril for GIBSON -SPEP, UPEP, free light chain assay -PTH-rp -24 hr urinary calcium -Pending 1,25-OH vitamin D level -Holding home calcitriol and cholecalciferol for hypercalcemia and sufficient vit D level -Home norvasc and coreg -Home eliquis -Home levothyroxine -Lantus and SSI, holding glyburide -Discontinue Telemetry -PT&OT following. -DVT prophylaxis: on eliquis -Dispo: likely home with family support, possibly HH. Will need to establish with PCP in the [place] after discharge who can follow up renal function, calcium level and pending workup. Has a virtual meeting with [facility] next week. Time Spent With Patient Time: Total time spent is greater than 50% in coordination of care (as documented) at patient's floor/unit and/or counseling patient: QUALITY VTE Deep Vein Thrombosis/Pulmonary Embolism Present on Admission: No
[2020-09-03] MEDS: 0.9 % SODIUM CHLORIDE 1,000 ML IV SCH ×3 (02:39→12:48)
[2020-09-03 07:58] LABS: Basophils # (Auto) 0.03 K/mcL (0.00-0.20); Basophils % (Auto) 0.5 % (0.0-2.0); Eosinophils # (Auto) 0.11 K/mcL (0.00-0.70); Eosinophils % (Auto) 1.7 % (0.0-7.0); Hematocrit 31.2 % (36.0-48.0); Hemoglobin 10.1 g/dL (12.0-15.0); Lymphocytes # (Auto) 1.31 K/mcL (1.50-4.80); Lymphocytes % (Auto) 20.3 % (15.0-49.0); Mean Cell Volume 92.3 fL (80.0-100.0); Mean Corpuscular HGB Conc 32.4 g/dL (31.0-36.0); Mean Platelet Volume 10.4 fL (7.4-10.4); Monocytes # (Auto) 0.62 K/mcL (0.10-0.90); Monocytes % (Auto) 9.6 % (1.0-12.0); Neutrophils % (Auto) 67.9 % (38.0-78.0); Platelet Count 213 K/mcL (140-440); RBC 3.38 M/mcL (4.00-5.20); Red Cell Distribution Width 12.1 % (11.5-14.5); WBC 6.4 K/mcL (4.5-11.0)
[2020-09-03 08:16] LABS: ALT/SGPT 8 U/L (<40); AST/SGOT 15 U/L (<32); Albumin 3.8 gm/dL (3.2-5.2); Albumin/Globulin Ratio 1.8 (1.0-2.3); Alkaline Phosphatase 65 U/L (39-117); Bilirubin,Direct < 0.2 mg/dL (<0.3); Bilirubin,Total 0.6 mg/dL (0.1-1.0); Blood Urea Nitrogen 20 mg/dL (8-23); Calcium 10.1 mg/dL (8.6-10.4); Carbon Dioxide 22 mmol/L (22-30); Chloride 104 mmol/L (96-108); Globulin 2.1 gm/dL (2.2-3.7); Glomerular Filtration Rate 30; Glucose 81 mg/dL (70-105); Lactate Dehydrogenase 182 U/L (135-225); Phosphorous 1.6 mg/dL (2.5-4.5); Triglycerides 311 mg/dL (<150); Uric Acid 8.3 mg/dL (2.5-8.0)
[2020-09-03] MEDS: 0.9 % SODIUM CHLORIDE 10 ML SYRINGE IV SCH ×3 (08:20→20:27)
[2020-09-03] MEDS: INSULIN LISPRO 1 UNIT/0.01 ML UNIT SQ SCH ×4 (08:28→20:38)
--- NOTE | 2020-09-03 09:16 | Internal Med Progress Note ---
SUBJECTIVE Subjective Patient information: Note initiated : 09/03/20 at 9:10 am Service Date, if different from initiated Date: [] Patient: Gloria Sanchez 80 y/o F admitted on 09/01/20 for weakness. Chief Complaint: [] Interval history: Ms. Sanchez is a 80 year old female with a history of hypertension, DM II, afib (on low dose eliquis), CKD unknown stage (follows with nephrology at [facility] in [place]), s/p pacemaker placement years ago, who presented to the ED for lethargy, generalized weakness and found to have hypercalcemia with a calcium of 15.2 and an acute kidney injury. The the patient was started on IV fluid, given a dose of Pamidronate, admitted for further management. Overnight her calcium level improved to 12.9 and renal function improved as well. Since calcium has improved rapidly calcitonin was deferred. 25-OH vitamin D level elevated at 82.9. 09/02 Improving renal function and calcium level, decreased IV fluid rate to 75 mL/hr. PTH 40.8 (higher than expected for calcium level). TSH 1.36. Transfer to med/surg. PT/OT evaluations. 09/03 Renal function improvement trend slowing, good urine output, calcium level i mproving, started neutra phos multiple pending labs will probably need to be followed up outpatient. Constitutional Vitals: Vital Signs Temp Pulse Resp BP Pulse Ox 96.9 F L 79 18 116/64 97 09/03/20 08:00 09/03/20 08:00 09/03/20 08:00 09/03/20 08:00 09/03/20 08:00 Period Temp Pulse Resp BP Sys/Jerome Pulse Ox Last 24 Hr 96.9 F-98.3 F 71-79 16-18 116-151/64-83 95-100 Intake and Output 09/02/20 09/03/20 09/03/20 21:59 05:59 13:59 Intake Total 240 300 Output Total 600 1450 Balance -360 -1150 Weight 74.979 kg Intake & Output: Intake & Output 09/02/20 09/03/20 09/03/20 21:59 05:59 13:59 Intake Total 240 300 Output Total 600 1450 Balance -360 -1150 Weight 74.979 kg Intake: Oral 240 300 Output: Void Amount 600 1450 Other: Meal Dinner Percent of Meal Consumed 90% Feeding Ability Independent Urine Appearance Clear Clear Clear Urine Color Bright Yellow Pale Urine Odor Normal Stool Size Large Stool Color Brown Stool Consistency Formed Additional findings Additional findings: Head: Atraumatic, normal inspection. Eyes: normal appearance, no scleral icterus. Neck: full ROM Respiratory: no respiratory distress. Cardiovascular: normal rate and rhythm. GI/Abdominal: soft, nondistended.. Extremities: full range of motion, nontender. Neurological: CN II-XII intact, intact motor, intact sensation. Psychiatric: normal mood. Skin: warm, normal color OBJ DATA Labs CBC & Chem 7: 09/03/20 05:49 09/03/20 05:49 Labs: Abnormal Lab Results 09/03/20 09/03/20 09/02/20 05:49 05:49 04:57 RBC 3.38 L Hgb 10.1 L Hct 31.2 L MPV Lymph # (Auto) 1.31 L Lymphocytes % Potassium Chloride BUN Creatinine 1.6 H 1.7 H Glucose 116 H Uric Acid 8.3 H 9.3 H Calcium 10.9 H Phosphorus 1.6 L 1.5 L Magnesium 1.5 L Globulin 2.1 L Triglycerides 311 H 387 H Urine Glucose (UA) Urine Mucus 09/02/20 09/01/20 09/01/20 04:57 05:00 05:00 RBC 3.42 L 3.45 L Hgb 10.4 L 10.5 L Hct 30.7 L 30.7 L MPV 10.5 H 10.5 H Lymph # (Auto) 1.28 L 1.36 L Lymphocytes % Potassium Chloride BUN 26 H Creatinine 1.9 H Glucose 188 H Uric Acid 10.0 H Calcium 12.9 H Phosphorus 1.5 L Magnesium Globulin 2.1 L Triglycerides 304 H Urine Glucose (UA) Urine Mucus 09/01/20 08/31/20 08/31/20 04:29 18:05 18:05 RBC 3.96 L Hgb Hct 34.8 L MPV 10.6 H Lymph # (Auto) Lymphocytes % 14 L Potassium 2.8 L* Chloride 94 L BUN 33 H Creatinine 2.3 H Glucose 208 H Uric Acid Calcium 15.2 H* Phosphorus Magnesium Globulin Triglycerides Urine Glucose (UA) 150 A Urine Mucus Few A Meds: Medications Amlodipine Besylate (Norvasc) 10 mg PO DAILY [facility] Apixaban (Eliquis) 2.5 mg PO BID [facility] Last Admin: 09/02/20 21:12 Dose: 2.5 mg Documented by: [facility] Last Admin: 09/02/20 18:17 Dose: 6.25 mg Documented by: Dextrose (Dextrose 50%) 0 ml IV UD PRN PRN Reason: Hypoglycemia Diagnostic Test (Pha) (Accu-Chek) 1 each FS [facility] Last Admin: 09/03/20 08:28 Dose: 1 each Documented by: Glucose (Insta-Glucose) 15 gm PO PRN PRN PRN Reason: Hypoglycemia Sodium Chloride (Sodium Chloride 0.9%) 1,000 mls @ 75 mls/hr IV .[id number] [facility] Last Admin: 09/03/20 02:39 Dose: Not Given Documented by: Insulin Glargine (Lantus) 5 unit SQ DAILY [facility] Insulin Human Lispro (Humalog) 0 unit SQ [facility]; Protocol Last Admin: 09/03/20 08:28 Dose: Not Given Documented by: Levothyroxine Sodium (Synthroid) 25 mcg PO QAMAC [facility] Melatonin (Melatonin 3mg Tablet) 9 mg PO HSP PRN PRN Reason: Insomnia Ondansetron HCl (Zofran) 4 mg IV Q4HP PRN; Protocol PRN Reason: Nausea And Vomiting Potassium/Phosphorus/Sodium (Neutra Phos) 2 packet PO BID [facility] Stop: 09/05/20 08:59 Sodium Chloride (Saline Flush) 10 ml IV Q8 [facility] Last Admin: 09/03/20 08:20 Dose: Not Given Documented by: A/P Narrative A/P Narrative: ASSESSMENT: 80 year old female with a history of hypertension, DM II, afib (on low dose eliquis), CKD stage III (follows with nephrology at [facility] in [place]), she carries a diagnosis of secondary hyperparathyroidism of renal origin (per nephrology), s/p pacemaker placement years ago, multiple recent hospitalization and SNF rehab stays for recent falls, has a home in [place], [place], but currently staying with her daughter in [place], [place], presented to the ED for several weeks of lethargy, anorexia, generalized weakness and found to have hypercalcemia and an acute on chronic kidney injury. The patient was treated with IV fluid, received on dose of IV Pamidronate in the ED and admitted for ongoing management. Her renal function and calcium level have improved ongoing workup revealed a PTH in the mid-range, vitamin D level 82.9. Multiple pending labs are in process. PT and OT following. #Hypercalcemia-uncertain etiology, improving with IV and s/p pamidronate x1 -Differential includes: primary hyperparathyroidism, malignancy, secondary hyperparathyroidism or renal origin? [facility], vs other -PTH 40.8 (mid-upper range)-higher than expected for hypercalcemia -25-OH vit D 82.9 (replete) #Nonoliguric acute on chronic kidney stage IIIa injury-improving -suspect d/t hypercalcemia (was also taking lisinopril) -bland urinalysis -no evidence of obstructive uropathy clinically #Hypophosphatemia-possibly secondary to hyperparathyroidism #Hyperuricemia #Anemia-likely dilutional #Lethargy and anorexia-resolved #Atrial fibrillation s/p pacemaker-probably pacemaker dependent #Hypertension #Hypothyroidism-TSH 1.36 #Osteoporosis #Generalized weakness PLAN -IV NS 75 /l/min, monitor renal function, calcium level, and urine output. -Avoid nephrotoxic meds, holding lisinopril for GIBSON -Pending SPEP, UPEP, free light chain assay -Pending PTH-rp -Pending 24 hr urinary calcium -Pending 1,25-OH vitamin D level -Holding home calcitriol and cholecalciferol for hypercalcemia and sufficient vit D level -Home norvasc and coreg -Home eliquis -Home levothyroxine -Lantus and SSI, holding glyburide -PT&OT following. -DVT prophylaxis: on eliquis -Dispo: likely home with family support, possibly HH. [place] who can follow up renal function, calcium level and pending workup. Has a virtual meeting with [facility] next week. Time Spent With Patient Time: Total time spent is greater than 50% in coordination of care (as documented) at patient's floor/unit and/or counseling patient: QUALITY VTE Deep Vein Thrombosis/Pulmonary Embolism Present on Admission: No
[2020-09-03 09:17] LABS: Kappa Free Light Chains 30.03 mg/L (3.30-19.40); Lambda Free Light Chains 21.78 mg/L (5.71-26.30)
[2020-09-03] MEDS: amLODIPine 10 MG TABLET PO SCH (10:33)
[2020-09-03] MEDS: CARVEDILOL 6.25 MG TABLET PO SCH ×2 (10:33→16:32)
[2020-09-03] MEDS: APIXABAN 5 MG TABLET PO SCH ×2 (10:34→20:38)
[2020-09-03] MEDS: LEVOTHYROXINE 25 MCG TABLET PO SCH (10:34)
[2020-09-03] MEDS: INSULIN GLARGINE, HUMAN 1 UNIT/0.01 ML SQ SCH (11:08)
[2020-09-03] MEDS: NEUTRA PHOS 1 PACKET PO SCH ×2 (11:08→20:38)
--- NOTE | 2020-09-03 12:53 | Internal Med Progress Note ---
SUBJECTIVE Subjective Patient information: Note initiated : 09/03/20 at 12:48 pm Service Date, if different from initiated Date: [] Patient: Gloria Sanchez 80 y/o F admitted on 09/01/20 for weakness. Chief Complaint: [] Interval history: nterval history: Ms. Sanchez is a 80 year old female with a history of hypertension, DM II, afib (on low dose eliquis), CKD unknown stage (follows with nephrology at [facility] in [place]), s/p pacemaker placement years ago, who presented to the ED for lethargy, generalized weakness and found to have hy percalcemia with a calcium of 15.2 and an acute kidney injury. The the patient was started on IV fluid, given a dose of Pamidronate, admitted for further management. Overnight her calcium level improved to 12.9 and renal function improved as well. Since calcium has improved rapidly calcitonin was deferred. 25-OH vitamin D level elevated at 82.9. 09/02 Improving renal function and calcium level, decreased IV fluid rate to 75 mL/hr. PTH 40.8 (higher than expected for calcium level). TSH 1.36. Transfer to med/surg. PT/OT evaluations. 09/03 Renal function improvement trend slowing, good urine output, calcium level improving, started neutra phos multiple pending labs will probably need to be followed up outpatient. 09/04 Constitutional Vitals: Vital Signs Temp Pulse Resp BP Pulse Ox 96.9 F L 79 18 116/64 97 09/03/20 08:00 09/03/20 08:00 09/03/20 08:00 09/03/20 08:00 09/03/20 08:00 Period Temp Pulse Resp BP Sys/Jerome Pulse Ox Last 24 Hr 96.9 F-98.3 F 71-79 18-18 116-151/64-83 96-100 Intake and Output 09/02/20 09/03/20 09/03/20 21:59 05:59 13:59 Intake Total 4621 213 2390 Output Total 600 1450 Balance 640 -1150 1000 Weight 74.979 kg Intake & Output: Intake & Output 09/02/20 09/03/20 09/03/20 21:59 05:59 13:59 Intake Total 1515 469 2676 Output Total 600 1450 Balance 640 -1150 1000 Weight 74.979 kg Intake: IV 1000 1000 Sodium Chloride 0.9% 1,000 ml @ 1000 1000 75 mls/hr IV .[id number] [facility] Rx#: [id number] Oral 240 300 Output: Void Amount 600 1450 Other: Meal Dinner Percent of Meal Consumed 90% Feeding Ability Independent Urine Appearance Clear Clear Clear Urine Color Bright Yellow Pale Urine Odor Normal Stool Size Large Stool Color Brown Stool Consistency Formed Exam: General: Alert, Awake, No acute Distress Eyes/N/T: EOMI, Head/Neck: neck supple, CV: RRR, No murmurs, Pulm: Clear b/l, no wheezing/rhonchi/rales Abd: soft, nontender, +BS x4 Ext: no clubbing/cyanosis/edema Neuro: Alert, no focal deficits, moves all extremities, C Skin: warm/dry OBJ DATA Labs CBC & Chem 7: 09/03/20 05:49 09/03/20 05:49 Labs: Abnormal Lab Results 09/03/20 09/03/20 09/02/20 05:49 05:49 06:59 RBC 3.38 L Hgb 10.1 L Hct 31.2 L MPV Lymph # (Auto) 1.31 L Lymphocytes % Potassium Chloride BUN Creatinine 1.6 H Glucose Uric Acid 8.3 H Calcium Phosphorus 1.6 L Magnesium Globulin 2.1 L Triglycerides 311 H Urine Glucose (UA) Urine Mucus Free [place] LC, Quant 30.03 H 09/02/20 09/02/20 09/01/20 04:57 04:57 05:00 RBC 3.42 L Hgb 10.4 L Hct 30.7 L MPV 10.5 H Lymph # (Auto) 1.28 L Lymphocytes % Potassium Chloride BUN 26 H Creatinine 1.7 H 1.9 H Glucose 116 H 188 H Uric Acid 9.3 H 10.0 H Calcium 10.9 H 12.9 H Phosphorus 1.5 L 1.5 L Magnesium 1.5 L Globulin 2.1 L Triglycerides 387 H 304 H Urine Glucose (UA) Urine Mucus Free [place] LC, Quant 09/01/20 09/01/20 08/31/20 05:00 04:29 18:05 RBC 3.45 L Hgb 10.5 L Hct 30.7 L MPV 10.5 H Lymph # (Auto) 1.36 L Lymphocytes % Potassium 2.8 L* Chloride 94 L BUN 33 H Creatinine 2.3 H Glucose 208 H Uric Acid Calcium 15.2 H* Phosphorus Magnesium Globulin Triglycerides Urine Glucose (UA) 150 A Urine Mucus Few A Free [place] LC, Quant 08/31/20 18:05 RBC 3.96 L Hgb Hct 34.8 L MPV 10.6 H Lymph # (Auto) Lymphocytes % 14 L Potassium Chloride BUN Creatinine Glucose Uric Acid Calcium Phosphorus Magnesium Globulin Triglycerides Urine Glucose (UA) Urine Mucus Free [place] LC, Quant Meds: Medications Amlodipine Besylate (Norvasc) 10 mg PO DAILY [facility] Last Admin: 09/03/20 10:33 Dose: 10 mg Documented by: Apixaban (Eliquis) 2.5 mg PO BID [facility] Last Admin: 09/03/20 10:34 Dose: 2.5 mg Documented by: [facility] ([facility]) [facility] Last Admin: 09/03/20 10:33 Dose: 6.25 mg Documented by: Dextrose (Dextrose 50%) 0 ml IV UD PRN PRN Reason: Hypoglycemia Diagnostic Test (Pha) (Accu-Chek) 1 each FS [facility] Last Admin: 09/03/20 12:02 Dose: 1 each Documented by: Glucose (Insta-Glucose) 15 gm PO PRN PRN PRN Reason: Hypoglycemia Sodium Chloride (Sodium Chloride 0.9%) 1,000 mls @ 75 mls/hr IV .[id number] [facility] Last Admin: 09/03/20 10:38 Dose: 75 mls/hr Documented by: Insulin Glargine (Lantus) 5 unit SQ DAILY [facility] Last Admin: 09/03/20 11:08 Dose: 5 units Documented by: Insulin Human Lispro (Humalog) 0 unit SQ [facility]; Protocol Last Admin: 09/03/20 12:02 Dose: Not Given Documented by: Levothyroxine Sodium (Synthroid) 25 mcg PO QAMAC [facility] Last Admin: 09/03/20 10:34 Dose: 25 mcg Documented by: Melatonin (Melatonin 3mg Tablet) 9 mg PO HSP PRN PRN Reason: Insomnia Ondansetron HCl (Zofran) 4 mg IV Q4HP PRN; Protocol PRN Reason: Nausea And Vomiting Potassium/Phosphorus/Sodium (Neutra Phos) 2 packet PO BID [facility] Stop: 09/05/20 08:59 Last Admin: 09/03/20 11:08 Dose: 2 packet Documented by: Sodium Chloride (Saline Flush) 10 ml IV Q8 [id number] Last Admin: 09/03/20 08:20 Dose: Not Given Documented by: A/P Narrative A/P Narrative: A: *Hypercalcemia: uncertain etiology, improving with IV and s/p pamidronate x1 -Differential includes: primary hyperparathyroidism, malignancy, secondary hyperparathyroidism or renal origin? [facility], vs other -PTH 40.8 (mid-upper range)-higher than expected for hypercalcemia -25-OH vit D 82.9 (replete) *Nonoliguric GIBSON on CKD IIIa injury: improving -suspect d/t hypercalcemia (was also taking lisinopril) -bland urinalysis -no evidence of obstructive uropathy clinically *Hypophosphatemia: ossibly secondary to hyperparathyroidism *Hyperuricemia *Anemia: likely dilutional probably chronic component *Lethargy and anorexia :resolved *Atrial fibrillation s/p pacemaker: probably pacemaker dependent *Hypertension *Hypothyroidism: TSH 1.36 *Osteoporosis *Generalized weakness PLAN: -IV NS 75 /l/min, monitor renal function, calcium level, and urine output. -Avoid nephrotoxic meds, holding lisinopril for GIBSON -Pending SPEP, UPEP, free light chain assay -Pending PTH-rp -Pending 24 hr urinary calcium -Pending 1,25-OH vitamin D level -Holding home calcitriol and cholecalciferol for hypercalcemia and sufficient vi t D level -cont Home norvasc and coreg -Lantus and SSI, holding glyburide -PT&OT following. -DVT prophylaxis: on home eliquis -Dispo: likely home with family support, possibly HH. [place] who can follow up renal function, calcium level and pending workup. Has a virtual meeting with [facility] next week. DNR Time Spent With Patient Time: Total time spent is greater than 50% in coordination of care (as documented) at patient's floor/unit and/or counseling patient: QUALITY VTE Deep Vein Thrombosis/Pulmonary Embolism Present on Admission: No
--- NOTE | 2020-09-03 12:55 | Discharge Summary ---
Discharge Provider Provider Patient information: Note initiated : 09/03/20 at 12:54 pm Service Date, if different from initiated Date: [] Patient: Gloria Sanchez 80 y/o F admitted on 09/01/20 for weakness. Chief Complaint: [] Date of admission: 09/01/20 02:43 Discharge date: 09/04/20 Consults: 09/01/20 Consult to Physician [CONS] Stat Comment: Consulting Provider: Sourav Lainez Reason For Exam: Physician to Consult Discharge Meds Discharge Medications Home Medications Eliquis 2.5 mg PO BIDWMEAL 08/31/20 [History Confirmed 09/01/20 Last Taken 08/31/20 08:00] alendronate 70 mg PO WEEKLY 08/31/20 [History Confirmed 09/01/20 Last Taken 08/31/20 08:00] amlodipine 10 mg PO QAM 08/31/20 [History Confirmed 09/01/20 Last Taken 08/31/20 08:00] carvedilol [Coreg] 12.5 mg PO BID 08/31/20 [History Confirmed 09/01/20 Last Taken 08/31/20 08:00] glyburide 5 mg PO BIDWMEAL 08/31/20 [History Confirmed 09/01/20 Last Taken 08/31/20 08:00] levothyroxine 25 mcg PO QHS 08/31/20 [History Confirmed 09/01/20 Last Taken 08/30/20 21:00] magnesium hydroxide 30 ml PO PRN PRN 08/31/20 [History Confirmed 09/01/20 Last Taken Unknown] sodium bicarbonate 650 mg PO 3XW 08/31/20 [History Confirmed 09/01/20 Last Taken 08/31/20 08:00] Centrum Women 1 tab PO QPM 09/01/20 [History Confirmed 09/01/20 Last Taken 08/30/20 17:00] melatonin 3 mg PO HS PRN 09/01/20 [History Confirmed 09/01/20 Last Taken Unknown] COURSE Hospital Course Hospital course: Interval history: nterval history: Ms. Sanchez is a 80 year old female with a history of hypertension, DM II, afib (on low dose eliquis), CKD unknown stage (follows with nephrology at [facility] in [place]), s/p pacemaker placement years ago, who presented to the ED for lethargy, generalized weakness and found to have hypercalcemia with a calcium of 15.2 and an acute kidney injury. The the patient was started on IV fluid, given a dose of Pamidronate, admitted for further management. Overnight her calcium level improved to 12.9 and renal function improved as well. Since calcium has improved rapidly calcitonin was deferred. 25-OH vitamin D level elevated at 82.9. 09/02 Improving renal function and calcium level, decreased IV fluid rate to 75 mL/hr. PTH 40.8 (higher than expected for calcium level). TSH 1.36. Transfer to med/surg. PT/OT evaluations. 09/03 Renal function improvement trend slowing, good urine output, calcium level improving, started neutra phos multiple pending labs will probably need to be followed up outpatient. 09/04 Patient doing well. No pains or complaints or issues overnight. Feeling well. Possibly going to [facility] the leg. Calcium within normal limits. A: *Hypercalcemia: uncertain etiology, improved with IV and s/p pamidronate x1 -Differential includes: primary hyperparathyroidism, malignancy, secondary hyperparathyroidism or renal origin? [facility], vs other -PTH 40.8 (mid-upper range)-higher than expected for hypercalcemia -25-OH vit D 82.9 (replete) -mildly increased free kappa LC but normal lambda and normal kappa/lambda ratio *Nonoliguric GIBSON on CKD IIIa injury: improving -suspect d/t hypercalcemia (was also taking lisinopril) -bland urinalysis -no evidence of obstructive uropathy clinically *Hypophosphatemia: possibly secondary to hyperparathyroidism *Hyperuricemia *Anemia: likely dilutional probably chronic component *Lethargy and anorexia :resolved *Atrial fibrillation s/p pacemaker: probably pacemaker dependent *Hypertension *Hypothyroidism: TSH 1.36 *Osteoporosis *Generalized weakness Discharge diagnosis: Hypercalcemia acute kidney injury hypophosphatemia hyperuricemia Secondary discharge diagnosis: Anemia A. fib hypertension hypothyroidism osteoporosis Time Spent with Patient Time attestation: Total time spent providing and/or coordinating discharge services: Time spent: Greater than 30 minutes EXAM Constitutional Vitals: Temp Pulse Resp BP Pulse Ox 96.9 F L 79 18 116/64 97 09/03/20 08:00 09/03/20 08:00 09/03/20 08:00 09/03/20 08:00 09/03/20 08:00 Discharge Data Data Completed and Pending Labs on day of discharge: Labs from last 24 hours 09/03/20 09/03/20 09/02/20 05:49 05:49 06:59 WBC 6.4 RBC 3.38 L Hgb 10.1 L Hct 31.2 L MCV 92.3 MCH 29.9 MCHC 32.4 RDW 12.1 Plt Count 213 MPV 10.4 Neut % (Auto) 67.9 Lymph % (Auto) 20.3 [place] % (Auto) 9.6 Eos % (Auto) 1.7 Baso % (Auto) 0.5 Lymph # (Auto) 1.31 L [place] # (Auto) 0.62 Eos # (Auto) 0.11 Baso # (Auto) 0.03 Absolute Neutrophils 4.37 Sodium 139 Potassium 3.8 Chloride 104 Carbon Dioxide 22 Anion Gap 13.0 BUN 20 Creatinine 1.6 H GFR Calculation 30 Glucose 81 Uric Acid 8.3 H Calcium 10.1 Phosphorus 1.6 L Magnesium 1.9 Total Bilirubin 0.6 Direct Bilirubin < 0.2 GGT 28 AST 15 ALT 8 Alkaline Phosphatase 65 Lactate Dehydrogenase 182 Total Protein 5.9 Albumin 3.8 Globulin 2.1 L Albumin/Globulin Ratio 1.8 Triglycerides 311 H Free [place] LC, Quant 30.03 H Free Lambda LC, Quant 21.78 Free [place]/Lambda Ratio 1.379 Discharge Plan Patient/Caregiver Discharge Instructions Activity: increase activity as tolerated Diet: Consistent Carbohydrate Activity Restrictions/Additional Instructions: Follow up with Endocrinology for your hypercalcemia with concern for primary parathyroid. We have sent a referral to [facility], [address] [place] [address] [address] [place] [id number]. Phone . Referral to see nephrology in 5-14 days for chronic kidney disease and hypercalc emia. Follow-up with PCP in 3 to 7 days. Prescriptions: Continued carvedilol [Coreg] 6.25 mg Tablet 12.5 mg PO BID RF: 0 glyburide 5 mg Tablet 5 mg PO BIDWMEAL RF: 0 alendronate 70 mg Tablet 70 mg PO WEEKLY RF: 0 magnesium hydroxide 400 mg/5 mL Suspension 30 ml PO PRN PRN (Reason: Constipation) RF: 0 sodium bicarbonate 650 mg Tablet 650 mg PO 3XW RF: 0 amlodipine 10 mg Tablet 10 mg PO QAM RF: 0 levothyroxine 25 mcg Capsule 25 mcg PO QHS RF: 0 Eliquis 2.5 mg Tablet 2.5 mg PO BIDWMEAL RF: 0 melatonin 3 mg Tablet 3 mg PO HS PRN (Reason: Insomnia) RF: 0 Centrum Women 18-400 mg-mcg Tablet 1 tab PO QPM RF: 0 Discontinued calcitriol 0.5 mcg Capsule See Rx Instructions .ROUTE .COMPLEX RF: 0 lisinopril 10 mg Tablet 20 mg PO BID RF: 0 calcitriol 0.5 mcg Capsule 0.5 mcg PO 3XW RF: 0 cholecalciferol (vitamin D3) [Dialyvite Vitamin D] 125 mcg (5,000 unit) Capsule 10,000 unit PO QPM RF: 0 Follow Up Plan Patient Disposition: Xfer SNF Prognosis: Fair Rehab Potential: Fair Overall status at discharge: patient is progressing back to baseline Discharge Orders: Discharge Order (Routine); Ordered 09/04/20 Ordered By: Javier RAYMOND VTE Deep Vein Thrombosis/Pulmonary Embolism Present on Admission: No
[2020-09-03 14:13] LABS: Albumin PEP 3.05 gm/dL (3.10-4.70); Albumin/Globulin Ratio PEP 1.3 RATIO (0.9-1.7); Alpha-1-Globulins 0.19 gm/dL (0.10-0.50); Alpha-2-Globulins 0.73 gm/dL (0.40-1.20); Beta Globulins 0.92 gm/dL (0.60-1.20); Gamma Globulins 0.51 gm/dL (0.50-1.70); Globulin PEP 2.4 gm/dL (2.4-3.6); Total Protein PEP 5.4 gm/dL (5.9-8.4)
[2020-09-04] MEDS: 0.9 % SODIUM CHLORIDE 10 ML SYRINGE IV SCH ×2 (05:31→14:06)
--- NOTE | 2020-09-04 07:05 | Internal Med Progress Note ---
SUBJECTIVE Subjective Patient information: Note initiated : 09/04/20 at 7:00 am Service Date, if different from initiated Date: [] Patient: Gloria Sanchez 80 y/o F admitted on 09/01/20 for weakness. Chief Complaint: [] Interval history: nterval history: Ms. Sanchez is a 80 year old female with a history of hypertension, DM II, afib (on low dose eliquis), CKD unknown stage (follows with nephrology at [facility] in [place]), s/p pacemaker placement years ago, who presented to the ED for lethargy, generalized weakness and found to have hyp ercalcemia with a calcium of 15.2 and an acute kidney injury. The the patient was started on IV fluid, given a dose of Pamidronate, admitted for further management. Overnight her calcium level improved to 12.9 and renal function improved as well. Since calcium has improved rapidly calcitonin was deferred. 25-OH vitamin D level elevated at 82.9. 09/02 Improving renal function and calcium level, decreased IV fluid rate to 75 mL/hr. PTH 40.8 (higher than expected for calcium level). TSH 1.36. Transfer to med/surg. PT/OT evaluations. 09/03 Renal function improvement trend slowing, good urine output, calcium level improving, started neutra phos multiple pending labs will probably need to be followed up outpatient. 09/04 Patient doing well. No pains or complaints or issues overnight. Feeling well. Possibly going to [facility] liver the leg. Calcium within normal limits. Review of Systems: denies headache/fever/chills/nausea/vomiting/chest or abdominal pain/cough/dyspnea/diarrhea. Otherwise see above. Constitutional Vitals: Vital Signs Temp Pulse Resp BP Pulse Ox 97.8 F 75 20 119/69 96 09/04/20 02:52 09/04/20 02:52 09/04/20 02:52 09/04/20 02:52 09/04/20 02:52 Period Temp Pulse Resp BP Sys/Jerome Pulse Ox Last 24 Hr 96.9 F-98.4 F 70-79 16-20 116-143/64-79 96-98 Intake and Output 09/03/20 09/04/20 09/04/20 21:59 05:59 13:59 Intake Total 800 1200 Output Total 1050 1400 Balance -250 -200 Weight 78.517 kg Intake & Output: Intake & Output 09/03/20 09/04/20 09/04/20 21:59 05:59 13:59 Intake Total 800 1200 Output Total 1050 1400 Balance -250 -200 Weight 78.517 kg Intake: IV 1000 Sodium Chloride 0.9% 1,000 ml @ 1000 75 mls/hr IV .[id number] Rx#: [id number] Oral 800 200 Output: Void Amount 1050 1400 Other: Meal Nourishment/Supplement Percent of Meal Consumed 100% Urine Appearance Clear Clear Urine Color Bright Yellow Pale Urine Odor Normal Normal Exam: General: Alert, Awake, No acute Distress Eyes/N/T: EOMI, Head/Neck: neck supple, CV: RRR, No murmurs, Pulm: Clear b/l, no wheezing/rhonchi/rales Abd: soft, nontender, +BS x4 Ext: no clubbing/cyanosis, trace b/l LE edema Neuro: Alert, no focal deficits, moves all extremities, C Skin: warm/dry OBJ DATA Labs CBC & Chem 7: 09/03/20 05:49 09/04/20 06:33 Labs: Abnormal Lab Results 09/03/20 09/03/20 09/02/20 05:49 05:49 06:59 RBC 3.38 L Hgb 10.1 L Hct 31.2 L MPV Lymph # (Auto) 1.31 L BUN Creatinine 1.6 H Glucose Uric Acid 8.3 H Calcium Phosphorus 1.6 L Magnesium Total Protein (PEP) Albumin (PEP) Globulin 2.1 L Triglycerides 311 H Free [place] LC, Quant 30.03 H 09/02/20 09/02/20 09/02/20 06:59 04:57 04:57 RBC 3.42 L Hgb 10.4 L Hct 30.7 L MPV 10.5 H Lymph # (Auto) 1.28 L BUN Creatinine 1.7 H Glucose 116 H Uric Acid 9.3 H Calcium 10.9 H Phosphorus 1.5 L Magnesium 1.5 L Total Protein (PEP) 5.4 L Albumin (PEP) 3.05 L Globulin Triglycerides 387 H Free [place] LC, Quant 09/01/20 05:00 RBC Hgb Hct MPV Lymph # (Auto) BUN 26 H Creatinine 1.9 H Glucose 188 H Uric Acid 10.0 H Calcium 12.9 H Phosphorus 1.5 L Magnesium Total Protein (PEP) Albumin (PEP) Globulin 2.1 L Triglycerides 304 H Free [place] LC, Quant Meds: Medications Amlodipine Besylate (Norvasc) 10 mg PO DAILY [facility] Last Admin: 09/03/20 10:33 Dose: 10 mg Documented by: Apixaban (Eliquis) 2.5 mg PO BID [facility] Last Admin: 09/03/20 20:38 Dose: 2.5 mg Documented by: [facility] Last Admin: 09/03/20 16:32 Dose: 6.25 mg Documented by: Dextrose (Dextrose 50%) 0 ml IV UD PRN PRN Reason: Hypoglycemia Diagnostic Test (Pha) (Accu-Chek) 1 each FS [facility] Last Admin: 09/03/20 20:26 Dose: 1 each Documented by: Glucose (Insta-Glucose) 15 gm PO PRN PRN PRN Reason: Hypoglycemia Insulin Glargine (Lantus) 5 unit SQ DAILY [facility] Last Admin: 09/03/20 11:08 Dose: 5 units Documented by: Insulin Human Lispro (Humalog) 0 unit SQ [facility]; Protocol Last Admin: 09/03/20 20:38 Dose: 2 unit Documented by: Levothyroxine Sodium (Synthroid) 25 mcg PO QAMAC [facility] Last Admin: 09/03/20 10:34 Dose: 25 mcg Documented by: Melatonin (Melatonin 3mg Tablet) 9 mg PO HSP PRN PRN Reason: Insomnia Last Admin: 09/04/20 00:31 Dose: 6 mg Documented by: Ondansetron HCl (Zofran) 4 mg IV Q4HP PRN; Protocol PRN Reason: Nausea And Vomiting Potassium/Phosphorus/Sodium (Neutra Phos) 2 packet PO BID [facility] Stop: 09/05/20 08:59 Last Admin: 09/03/20 20:38 Dose: 2 packet Documented by: Sodium Chloride (Saline Flush) 10 ml IV Q8 [facility] Last Admin: 09/04/20 05:31 Dose: 10 ml Documented by: A/P Narrative A/P Narrative: A: *Hypercalcemia: uncertain etiology, improved with IV and s/p pamidronate x1 -Differential includes: primary hyperparathyroidism, malignancy, secondary hyperparathyroidism or renal origin? [facility], vs other -PTH 40.8 (mid-upper range)-higher than expected for hypercalcemia -25-OH vit D 82.9 (replete) -mildly increased free kappa LC but normal lambda and normal kappa/lambda ratio *Nonoliguric GIBSON on CKD IIIa injury: improving -suspect d/t hypercalcemia (was also taking lisinopril) -bland urinalysis -no evidence of obstructive uropathy clinically *Hypophosphatemia: possibly secondary to hyperparathyroidism *Hyperuricemia *Anemia: likely dilutional probably chronic component *Lethargy and anorexia :resolved *Atrial fibrillation s/p pacemaker: probably pacemaker dependent *Hypertension *Hypothyroidism: TSH 1.36 *Osteoporosis *Generalized weakness PLAN: -d/c IVF, monitor renal function, calcium level, and urine output. -Avoid nephrotoxic meds, holding lisinopril for GIBSON -Pending SPEP, UPEP, free light chain assay -Pending PTH-rp -Pending 24 hr urinary calcium -Pending 1,25-OH vitamin D level -Holding home calcitriol and cholecalciferol for hypercalcemia and sufficient vit D level -cont Home norvasc and coreg -Lantus and SSI, holding glyburide -PT&OT following -f/u with nephrology -DVT prophylaxis: on home eliquis -Dispo: likely home with family support, possibly HH. Will need to establish with PCP in [place] after [place] who can follow up renal function, calcium level and pending workup. Has a virtual meeting with [facility] next week. DNR Time Spent With Patient Time: Total time spent is greater than 50% in coordination of care (as documented) at patient's floor/unit and/or counseling patient: QUALITY VTE Deep Vein Thrombosis/Pulmonary Embolism Present on Admission: No
[2020-09-04] MEDS: LEVOTHYROXINE 25 MCG TABLET PO SCH (07:17)
[2020-09-04] MEDS: INSULIN LISPRO 1 UNIT/0.01 ML UNIT SQ SCH ×2 (07:18→11:28)
[2020-09-04 08:20] LABS: ALT/SGPT 8 U/L (<40); AST/SGOT 13 U/L (<32); Albumin 3.5 gm/dL (3.2-5.2); Albumin/Globulin Ratio 1.7 (1.0-2.3); Alkaline Phosphatase 60 U/L (39-117); Bilirubin,Direct < 0.2 mg/dL (<0.3); Bilirubin,Total 0.4 mg/dL (0.1-1.0); Blood Urea Nitrogen 21 mg/dL (8-23); Calcium 8.8 mg/dL (8.6-10.4); Carbon Dioxide 20 mmol/L (22-30); Chloride 108 mmol/L (96-108); Globulin 2.1 gm/dL (2.2-3.7); Glomerular Filtration Rate 32; Glucose 131 mg/dL (70-105); Lactate Dehydrogenase 177 U/L (135-225); Triglycerides 263 mg/dL (<150)
[2020-09-04] MEDS: CARVEDILOL 6.25 MG TABLET PO SCH (08:23)
[2020-09-04] MEDS: amLODIPine 10 MG TABLET PO SCH (08:23)
[2020-09-04] MEDS: NEUTRA PHOS 1 PACKET PO SCH (08:23)
[2020-09-04] MEDS: APIXABAN 5 MG TABLET PO SCH (08:23)
[2020-09-04] MEDS: INSULIN GLARGINE, HUMAN 1 UNIT/0.01 ML SQ SCH (08:24)
[2020-09-06 17:31] LABS: Vit D 1,25 Dihydroxy 93 pg/mL (18-72)
[2020-09-14 13:47] LABS: PTH Related Protein-SO 16 pg/mL (14-27)
== END 2020-09-04 15:48 | DRG 641 ==
LOC: ED 17:15 → ICU 09-01 02:43 → MEDSUR 09-02 16:13
PROVIDERS: ADMIT Internal Medicine; ATTEND Internal Medicine